=== PATIENT | male | born 1940 | race African-American/Black ===

== ENCOUNTER 2017-09-13 21:16 | Emergency (ER) | payer MEDICARE ==
[2017-09-13] MEDS ORDERED: Sodium Bicarb 50 MEQ/50 ML Abboject 8.4% SYRINGE ONE (21:36)
[2017-09-13] MEDS ORDERED: Fentanyl 100 MCG/2 ML VIAL ONE (22:11)
== END 2017-09-13 21:53 | disposition expired ==
LOC: ERS 21:16 → EDBD 21:16 → ERS 21:53
DX: I46.9 Cardiac arrest, cause unspecified (principal)
CPT/HCPCS: 82962; C1769; 31500; 36416; 92950; 96374; 96375; 96376; J3010